=== PATIENT | male | born 1940 | race African-American/Black ===

== ENCOUNTER 2023-06-14 19:20 | Inpatient (IN) | payer MEDICARE, OTHER ==
[~2023-06-14] VITALS: Ht 182.9 cm; Wt 69.4 kg
[2023-06-14 22:40] LABS: APPEARANCE,URINE CLEAR (CLEAR); BASOPHILS # (AUTO) 0.1 K/uL (0.0-0.2); BASOPHILS % (AUTO) 0.9 % (0.0-2.0); BILIRUBIN,URINE NEGATIVE (NEGATIVE); BLOOD, URINE NEGATIVE Ery/uL (NEGATIVE); COLOR,URINE YELLOW (YELLOW); EOSINOPHILS # (AUTO) 0.3 K/uL (0.0-0.7); EOSINOPHILS % (AUTO) 4.5 % (0.0-6.0); HEMATOCRIT 23 % (39-51); HEMOGLOBIN 7.6 g/dL (13.5-17.5); KETONES,URINE NEGATIVE (NEGATIVE); LEUKOCYTE ESTERASE ,URINE NEGATIVE (NEGATIVE); LYMPHOCYTES # (AUTO) 2.3 K/uL (0.8-4.8); LYMPHOCYTES % (AUTO) 34.7 % (20.0-44.0); MEAN CORPUSCULAR HEMOGLOBIN 32 PG (26.0-33.0); MEAN CORPUSCULAR HGB CONC 33 g/dl (31.0-36.0); MEAN CORPUSCULAR VOLUME 100 fL (80-96); MONOCYTES # (AUTO) 0.2 K/uL (0.1-1.30); MONOCYTES % (AUTO) 3.1 % (2.0-12.0); NEUTROPHILS # (AUTO) 3.8 K/uL (1.8-8.9); NEUTROPHILS % (AUTO) 56.8 % (43.0-81.0); NITRITE, URINE NEGATIVE (NEGATIVE); PH,URINE 5.5 (5.0-8.0); PLATELET COUNT (AUTO) 115 K/uL (150-450); PROTEIN,URINE NEGATIVE (NEGATIVE); RED BLOOD CELL COUNT(AUTO) 2.34 MIL/uL (4.5-6.0); RED CELL DISTRIBUTION WIDTH 15.2 % (11.5-15.0); UGLUCOSE NEGATIVE (NEGATIVE); UROBILINOGEN,URINE 0.2 EU/dL (0.2); WHITE BLOOD COUNT (AUTO) 6.7 K/uL (4.3-11.0)
[2023-06-14 23:06] LABS: ALANINE AMINOTRANSFERASE 21 U/L (12-78); ALBUMIN 3.3 g/dL (3.4-5.0); ALKALINE PHOSPHATASE 75 U/L (46-116); ASPARTATE AMINOTRANSFERASE 27 U/L (15-37); BILIRUBIN,DIRECT 0.1 mg/dL (0.0-0.2); BILIRUBIN,TOTAL 0.2 mg/dL (0.2-1.0); CALCIUM, SERUM 8.6 mg/dL (8.5-10.1); CARBON DIOXIDE 16 mmol/L (21-32); CHLORIDE 112 mmol/L (98-107); CREATININE 3.8 mg/dL (0.6-1.3); GLUCOSE 89 mg/dL (74-106); LIPASE 42 U/L (16-77); POTASSIUM 5.3 mmol/L (3.5-5.1); SODIUM SERUM 140 mmol/L (136-145); TOTAL PROTEIN, SERUM 7.5 g/dL (6.4-8.2); UREA NITROGEN, BLOOD 75 mg/dL (7-18)
[2023-06-15] MEDS ORDERED: MAG HYDROX/AL HYDROX/SIMETH 30 ML UDC PO PRN (01:00)
[2023-06-15] MEDS ORDERED: ZOLPIDEM TARTRATE 5 MG TABLET PO PRN (01:00)
[2023-06-15] MEDS ORDERED: ACETAMINOPHEN 325 MG TABLET PO PRN (01:00)
[2023-06-15] MEDS ORDERED: ONDANSETRON HCL/PF 4 MG/2 ML VIAL IVP PRN (01:00)
[2023-06-15] MEDS ORDERED: Z GUARD REMEDY 4 OZ OINT TP PRN (01:00)
[2023-06-15] MEDS ORDERED: MAGNESIUM HYDROXIDE 30 ML UDC PO PRN (01:00)
[2023-06-15] MEDS: SODIUM POLYSTYRENE SULFONATE 15 G/60 ML BOTTLE PO ONE ×2 (01:16→06:25)
[2023-06-15] MEDS ORDERED: SODIUM POLYSTYRENE SULFONATE 15 G/60 ML BOTTLE ONE (06:07)
[2023-06-15] MEDS ORDERED: PANTOPRAZOLE 40 MG VIAL ONE (08:26)
[2023-06-15] MEDS: PANTOPRAZOLE 40 MG VIAL IV SCH (08:33)
[2023-06-15] MEDS: IV NS 0.9% 1,000 ML IV PRN (08:33)
[2023-06-15] MEDS ORDERED: AMLO-213 PO (09:05)
[2023-06-15] MEDS ORDERED: HYDR100T27 PO (09:05)
[2023-06-15] MEDS ORDERED: CLON0.2T PO (09:05)
[2023-06-15] MEDS ORDERED: ROSU20TA2 PO (09:05)
[2023-06-15 20:00] VITALS: BP_SYST 159; BP_DIAS 67; BP_DIAS 85; TEMP 97.7; TEMP 98.6; O2SAT 100
[2023-06-15] MEDS: HEPARIN SODIUM, PORCINE 5000 UNITS/1 ML VIAL SQ SCH (21:00)
[2023-06-16] VITALS: BP 172/70; TEMP 97.6; O2SAT 99
[2023-06-16 04:00] VITALS: BP 165/80; TEMP 97.5; O2SAT 99
[2023-06-16] MEDS: hydrALAZINE HCL IV 20 MG VIAL IV PRN (06:06)
[2023-06-16 07:30] VITALS: BP 155/81; TEMP 98.8; O2SAT 100
[2023-06-16] MEDS: CITALOPRAM HYDROBROMIDE 10 MG TABLET PO SCH (08:59)
[2023-06-16 16:00] VITALS: BP 150/62; TEMP 99.5; O2SAT 100
[2023-06-16 20:00] VITALS: BP 95/66; TEMP 99.1; O2SAT 93
[2023-06-16 20:31] VITALS: BP 159/82; TEMP 99.1; O2SAT 100
[2023-06-17] VITALS: BP 165/82; TEMP 98.2; O2SAT 99
[2023-06-17 00:30] VITALS: BP 165/82; TEMP 98.2; O2SAT 99
[2023-06-17 08:30] VITALS: BP 165/71; TEMP 99.1; O2SAT 98
[2023-06-17 16:00] VITALS: BP 153/78; TEMP 99; O2SAT 98
[2023-06-17 20:00] VITALS: BP 137/98; TEMP 99.5; O2SAT 98
[2023-06-18] VITALS: BP_SYST 159; BP_SYST 161; BP_DIAS 85; TEMP 99.1; O2SAT 99
[2023-06-18 04:00] VITALS: BP 136/56; TEMP 98.8; O2SAT 99
[2023-06-18 07:30] VITALS: BP 163/89; TEMP 99.1; O2SAT 99
[2023-06-18] MEDS: PANTOPRAZOLE 40 MG TABLET.DR PO SCH (09:49)
[2023-06-18] MEDS: LORAZEPAM 0.5 MG TABLET PO PRN (12:48)
[2023-06-18 20:00] VITALS: BP 155/59; TEMP 98.6; O2SAT 100
[2023-06-18 21:45] VITALS: BP 155/59; TEMP 98.6; O2SAT 100
[2023-06-19] VITALS: BP 124/85; TEMP 98.2; O2SAT 98
[2023-06-19 00:17] VITALS: BP 144/82; TEMP 98.6; O2SAT 98
[2023-06-19 05:04] VITALS: BP 146/87; TEMP 98.4; O2SAT 100
[2023-06-19 07:00] VITALS: BP 166/99; TEMP 98.1; O2SAT 98
[2023-06-19 16:00] VITALS: BP 155/75; TEMP 98.4; O2SAT 100
[2023-06-19 20:00] VITALS: BP 151/65; TEMP 98.8; O2SAT 100
[2023-06-20] VITALS: BP 150/68; TEMP 98.8; O2SAT 99
[2023-06-20 05:00] VITALS: BP 150/61; TEMP 98.8; O2SAT 100
[2023-06-20 07:00] VITALS: BP 144/90; TEMP 97.9; O2SAT 98
[2023-06-20 12:00] VITALS: BP 144/95; TEMP 97.7; O2SAT 98
[2023-06-20] MEDS ORDERED: LORAZEPAM INJ 2 MG/ML VIAL IV PRN (12:30)
[2023-06-20] MEDS: LORAZEPAM 1 MG TABLET PO ONE ×2 (12:30→17:19)
[2023-06-20 16:00] VITALS: BP 151/64; TEMP 97.8; O2SAT 96
[2023-06-20] MEDS: CLONIDINE HCL 0.1 MG TABLET PO PRN (21:49)
[2023-06-20 22:58] VITALS: BP 170/79; TEMP 97.9; O2SAT 99
[2023-06-21 07:00] VITALS: BP 122/52; TEMP 98.4; O2SAT 97
[2023-06-21 16:00] VITALS: BP 140/83; TEMP 98.6; O2SAT 98
[2023-06-21 20:00] VITALS: BP 151/66; TEMP 98.2; O2SAT 100
[2023-06-22 04:00] VITALS: BP 155/75; TEMP 98.8; O2SAT 100
[2023-06-22 07:00] VITALS: BP 141/97; TEMP 98.4; O2SAT 98
[2023-06-22] MEDS ORDERED: CITA10TA17 PO (09:22)
[2023-06-22 13:00] VITALS: BP 152/66; TEMP 98.1; O2SAT 100
== END 2023-06-22 15:00 | DRG 640 ==
LOC: ER 19:39 → TRANSITION 06-15 05:49 → TELE 06-15 13:20
PROVIDERS: ADMIT Internal Medicine; ATTEND Nurse Practitioner Acute Care
DX: E87.5 Hyperkalemia (principal); N17.0 Acute kidney failure with tubular necrosis; D62 Acute posthemorrhagic anemia; E44.1 Mild protein-calorie malnutrition; F33.3 Major depressive disorder, recurrent, severe with psychotic symptoms; E87.20 Acidosis, unspecified; D50.9 Iron deficiency anemia, unspecified; D69.6 Thrombocytopenia, unspecified; E78.5 Hyperlipidemia, unspecified; E88.09 Other disorders of plasma-protein metabolism, not elsewhere classified; F39 Unspecified mood [affective] disorder; F29 Unspecified psychosis not due to a substance or known physiological condition; Z79.899 Other long term (current) drug therapy; Z91.199 Patient's noncompliance with other medical treatment and regimen due to unspecified reason; I12.9 Hypertensive chronic kidney disease with stage 1 through stage 4 chronic kidney disease, or unspecified chronic kidney disease; N18.2 Chronic kidney disease, stage 2 (mild); D63.8 Anemia in other chronic diseases classified elsewhere
CPT/HCPCS: 36415; 71045-TC; 80048-TC; 80076-TC; 83690-TC; 85025-TC; 87081-TC; 87086-TC; 97112-TC; 97116-TC; 97530-TC; A4223; C9113; G0378; J0360; J1644; J2405; J7030